=== PATIENT | male | born 1930 | race Caucasian/White ===

== ENCOUNTER 2016-12-13 11:18 | Emergency (ER) | payer MEDICARE, BC, OTHER ==
[2016-12-13 11:59] VITALS: BP 101/66
--- NOTE | 2016-12-13 12:16 | UC ---
HPI Wound/Suture Re-check - HPI Summary HPI Summary: Seen 12/05 after fall and had 7 sutures to R face; denies pain or drainage, here for removal. - History Of Current Complaint Chief Complaint: UCLaceration Stated Complaint: SUTURE REMOVAL Time Seen by Provider: 12/13/16 11:52 Hx Obtained From: Patient Onset/Duration: Sudden Onset Severity: Mild - Allergies/Home Medications Allergies/Adverse Reactions: Allergies Allergy/AdvReac Type Severity Reaction Status Date / Time No Known Allergies Allergy Verified 12/13/16 11:59 PMH/Surg Hx/FS Hx/Imm Hx Endocrine History Of: Denies: Diabetes, Thyroid Disease, Hyperthyroidism, Hypothyroidism, Dyslipidemia Cardiovascular History Of: Reports: Hypertension - WELL CONTROLLED Denies: Cardiac Disorders, Pacemaker/ICD, Myocardial Infarction, Congestive Heart Failure, Atrial Fibrillation, Deep Vein Thrombosis, Bleeding Disorders Respiratory History Of: Denies: COPD, Asthma, Bronchitis, Pneumonia, Pulmonary Embolism GI/ History Of: Reports: Gastroesophageal Reflux Denies: Ulcer, Gastrointestinal Bleed, Gall Bladder Disease, Kidney Stones, Diverticulitis, Renal Disease, Urosepsis Neurological History Of: Denies: TIA, CVA, Dementia, Seizures, Migraine Psychological History Of: Denies: Anxiety, Depression, Bipolar Disorder, Schizophrenia, Post Traumatic Stress Disorder Cancer History Of: Denies: Lung Cancer, Colorectal Cancer, Breast Cancer, Prostate Cancer, Cervical Cancer Other History Of: Negative For: HIV, Hepatitis B, Hepatitis C, Anticoagulant Therapy - Surgical History Surgical History: Yes Surgery Procedure, Year, and Place: CHOLECYSTECTOMY [facility]. REPAIR RUPTURED MECKEL 'S DIVERTICULUM. 2 LAPAROTOMIES FOR ABSCESSES. APPENDECTOMY. RIGHT SHOULDER [facility]. Bilateral Total Knee Replacement. L INGUINAL HERNIA [facility]. BILAT TKR 2000, 2001 [facility]. LEFT CATARACT EXTRACTION [facility] - Family History Known Family History: Negative: Cardiac Disease, Hypertension - Social History Occupation: Retired Lives: Alone Alcohol Use: Daily Substance Use Type: None Smoking Status (MU): Never Smoked Tobacco Have You Smoked in the Last Year: No Household Exposure Type: Pipe - Immunization History Most Recent Influenza Vaccination: 2011 Most Recent Tetanus Shot: 3 years ago Most Recent Pneumonia Vaccination: unsure Review of Systems Constitutional: Negative Skin: Other - suture removal R face Eyes: Negative ENT: Negative Respiratory: Negative Cardiovascular: Negative Gastrointestinal: Negative Genitourinary: Negative Motor: Negative Neurovascular: Negative Musculoskeletal: Negative Neurological: Negative Psychological: Negative All Other Systems Reviewed And Are Negative: Yes Physical Exam Triage Information Reviewed: Yes Appearance: Well-Appearing, No Pain Distress, Well-Nourished Vital Signs: Initial Vital Signs Temp 97.6 F 12/13/16 11:54 Pulse 65 12/13/16 11:54 Resp 16 12/13/16 11:54 BP 101/66 12/13/16 11:54 Pulse Ox 95 12/13/16 11:54 Vital Signs Reviewed: Yes Eye Exam: Normal Eyes: Positive: Conjunctiva Clear ENT Exam: Normal ENT: Positive: Normal ENT inspection, Hearing grossly normal, Pharynx normal, TMs normal. Negative: Tonsillar swelling, Tonsillar exudate Dental Exam: Normal Neck exam: Normal Neck: Positive: Supple, Nontender, No Lymphadenopathy Respiratory Exam: Normal Respiratory: Positive: Chest non-tender, Lungs clear, Normal breath sounds, No respiratory distress, No accessory muscle use Cardiovascular Exam: Normal Cardiovascular: Positive: RRR, No Murmur Musculoskeletal Exam: Normal Neurological Exam: Normal Neurological: Positive: Alert Psychological Exam: Normal Skin Exam: Other - #7 sutures removed from R sikhism, by R eyebrow. Wound healed , no erythema or drainage. Course/Dx - Differential Dx - Laceration/Wound Provider Diagnoses: suture removal R face Discharge - Discharge Plan Condition: Stable Disposition: HOME Patient Education Materials: Stitches Removal (ED) Referrals: Ben Christie MD [Primary Care Provider] - Additional Instructions: Your cut has healed very well. I do not anticipate you will have any other problems with. Try to use sunscreen and/or a hat all summer, as scars are quite prone to sunburn.
== END 2016-12-13 12:25 | disposition home or self-care (01) ==
LOC: UCEAST 11:18
DX: Z48.02 Encounter for removal of sutures (principal); I10 Essential (primary) hypertension; K21.9 Gastro-esophageal reflux disease without esophagitis

== ENCOUNTER 2017-06-27 17:37 | Emergency (ER) | payer MEDICARE, BC, OTHER ==
[2017-06-27 17:47] VITALS: BP 172/90
[2017-06-27] MEDS ORDERED: Benzoin COMPOUND swab* 1 applicator pak TOPICAL ONE (18:14)
[2017-06-27] MEDS ORDERED: Benzoin Compound STICK ONE (18:17)
--- NOTE | 2017-06-27 18:34 | UC ---
Laceration HPI - HPI Summary HPI Summary: 86 yo male stumbled at [facility] and sustained a lac to right eye brow has had 2 prior lacs in that same region no LOC no neck pain denies pain - History Of Current Complaint Chief Complaint: UCLaceration Stated Complaint: EYEBROW LACERATION Time Seen by Provider: 06/27/17 17:50 Hx Obtained From: Patient Laceration Location: Eye - right upper brow Onset/Duration: Sudden Onset, Lasting Hours Severity: Mild Pain Intensity: 1 Pain Scale Used: 0-10 Numeric Aggravating Factors: Other: - touch - Allergies/Home Medications Allergies/Adverse Reactions: Allergies Allergy/AdvReac Type Severity Reaction Status Date / Time No Known Allergies Allergy Verified 06/27/17 17:48 PMH/Surg Hx/FS Hx/Imm Hx Previously Healthy: Yes Cardiovascular History: Hypertension Other History Of: Negative For: HIV, Hepatitis B, Hepatitis C, Anticoagulant Therapy - Surgical History Surgical History: Yes Surgery Procedure, Year, and Place: CHOLECYSTECTOMY [facility]. REPAIR RUPTURED MECKEL 'S DIVERTICULUM. 2 LAPAROTOMIES FOR ABSCESSES. APPENDECTOMY. RIGHT SHOULDER [facility]. Bilateral Total Knee Replacement. L INGUINAL HERNIA [facility]. BILAT TKR 2000, 2001 [facility]. LEFT CATARACT EXTRACTION [facility] - Family History Known Family History: Negative: Cardiac Disease, Hypertension - Social History Alcohol Use: Occasionally Substance Use Type: None Smoking Status (MU): Never Smoked Tobacco Have You Smoked in the Last Year: No Household Exposure Type: Pipe - Immunization History Most Recent Influenza Vaccination: 2011 Most Recent Tetanus Shot: Most Recent Pneumonia Vaccination: unsure Review of Systems Constitutional: Negative Skin: Negative Eyes: Negative ENT: Negative Respiratory: Negative Cardiovascular: Negative Gastrointestinal: Negative Genitourinary: Negative Motor: Negative Neurovascular: Negative Musculoskeletal: Negative Neurological: Negative Psychological: Negative Is Patient Immunocompromised?: No All Other Systems Reviewed And Are Negative: Yes Physical Exam Triage Information Reviewed: Yes Appearance: Well-Appearing, No Pain Distress, Well-Nourished Vital Signs: Initial Vital Signs Temp 98.1 F 06/27/17 17:44 Pulse 83 06/27/17 17:44 Resp 18 06/27/17 17:44 BP 172/90 06/27/17 17:44 Pulse Ox 98 06/27/17 17:44 Eyes: Positive: Conjunctiva Clear ENT: Positive: Uvula midline. Negative: Hearing grossly normal, Nasal congestion, Nasal drainage, Trismus, Muffled voice, Hoarse voice Neck: Positive: Supple, Nontender Respiratory: Positive: Lungs clear, Normal breath sounds, No respiratory distress Cardiovascular: Positive: RRR, No Murmur Neurological: Positive: Alert Psychological Exam: Normal Skin Exam: Other - see image Laceration Repair - Laceration Repair 1 Description: Linear Laceration Size After Repair: Length (cm) - 1.9cm, Width (mm) - 4, Depth (mm) - 1 Modified For Repair: No Cleansing Completed Via Routine Prep: Yes Irrigation With Pressure Irrigation Device: Yes Closure Material: Skin Adhesive, SteriStrips Laceration Course/Dx - Differential Dx - Laceration/Wound Provider Diagnoses: right eyebrow laceration. skin adhesive and steri strip repair Discharge - Discharge Plan Condition: Stable Disposition: HOME Patient Education Materials: Skin Adhesive Care (ED), Steristrips (ED) Referrals: Ben Christie MD [Primary Care Provider] - Additional Instructions: call for any questions return for any problems if steristrips are still on after 7 days gently remove them Images Head: 1 - lac
== END 2017-06-27 18:45 | disposition home or self-care (01) ==
LOC: UCEAST 17:37
DX: S01.111A Laceration without foreign body of right eyelid and periocular area, initial encounter (principal); W01.0XXA Fall on same level from slipping, tripping and stumbling without subsequent striking against object, initial encounter; Y93.9 Activity, unspecified; Y92.89 Other specified places as the place of occurrence of the external cause; Y99.9 Unspecified external cause status
CPT/HCPCS: 12011; 99211; G0463

== ENCOUNTER 2018-09-25 16:59 | Emergency (ER) | payer MEDICARE, BC, OTHER ==
--- NOTE | 2018-09-25 17:41 | UC ---
Head Injury HPI - HPI Summary HPI Summary: 87-year-old male comes in with a chief complaint of head injury. Patient reports he tripped and fell just prior to arrival. He landed and struck his face. His laceration on his nose on his lower lip. Denies any loss of consciousness. Did feel slightly lightheaded after the fall. Is not on any blood thinners. He does have some abrasions on his hands. Denies any other injuries. denies any change in vision or speech or weakness or numbness. - History Of Current Complaint Chief Complaint: UCHeadInjury Stated Complaint: FACIAL INJURY Time Seen by Provider: 09/25/18 17:35 Pain Intensity: 0 - Allergies/Home Medications Allergies/Adverse Reactions: Allergies Allergy/AdvReac Type Severity Reaction Status Date / Time No Known Allergies Allergy Verified 01/02/18 12:48 Home Medications: Home Medications Amoxicillin PO (*) [Amoxicillin 875 MG (*)] 875 mg PO BID 09/25/18 [History Confirmed 09/25/18] Finasteride TAB* [Proscar TAB*] 5 mg PO DAILY 09/25/18 [History Confirmed ] PMH/Surg Hx/FS Hx/Imm Hx Previously Healthy: Yes - BPH Cardiovascular History: Hypertension GI/ History: Gastroesophageal Reflux Other History Of: Negative For: HIV, Hepatitis B, Hepatitis C, Anticoagulant Therapy - Surgical History Surgical History: Yes Surgery Procedure, Year, and Place: [facility]LECYSTECTOMY [facility]. REPAIR RUPTURED MECKEL 'S DIVERTICULUM. 2 LAPAROTOMIES FOR ABSCESSES. APPENDECTOMY. RIGHT SHOULDER [facility]. Bilateral Total Knee Replacement. L INGUINAL HERNIA [facility]. BILAT TKR 2000, 2001 [facility]. LEFT CATARACT EXTRACTION [facility] - Family History Known Family History: Negative: Cardiac Disease, Hypertension - Social History Alcohol Use: Occasionally Substance Use Type: None Smoking Status (MU): Never Smoked Tobacco Have You Smoked in the Last Year: No Household Exposure Type: Pipe - Immunization History Most Recent Influenza Vaccination: 2011 Most Recent Tetanus Shot: Most Recent Pneumonia Vaccination: unsure Review of Systems All Other Systems Reviewed And Are Negative: Yes Constitutional: Positive: Negative Skin: Positive: Other - SEE HPI Eyes: Positive: Negative ENT: Positive: Other - SEE HPI Respiratory: Positive: Negative Cardiovascular: Positive: Negative Gastrointestinal: Positive: Negative Motor: Positive: Negative Neurovascular: Positive: Negative Musculoskeletal: Positive: Negative Neurological: Positive: Negative Psychological: Positive: Negative Is Patient Immunocompromised?: No Physical Exam Triage Information Reviewed: Yes Appearance: Well-Appearing, No Pain Distress, Well-Nourished Vital Signs: Initial Vital Signs Temp 98.3 F 09/25/18 17:12 Pulse 68 09/25/18 17:12 Resp 18 09/25/18 17:12 BP 188/94 09/25/18 17:12 Pulse Ox 96 09/25/18 17:12 Vital Signs Reviewed: Yes Eye Exam: Normal Eyes: Positive: Conjunctiva Clear, Other: - PERRLA/EOMI ENT: Positive: Pharynx normal, TMs normal - NO HEMOTYMPANUM Neck exam: Normal Neck: Positive: Supple, Nontender Respiratory: Positive: Lungs clear, Normal breath sounds, No respiratory distress Cardiovascular: Positive: RRR Musculoskeletal Exam: Normal Musculoskeletal: Positive: Strength Intact, ROM Intact Neurological Exam: Normal Neurological: Positive: Alert, Muscle Tone Normal Psychological Exam: Normal Psychological: Positive: Age Appropriate Behavior Skin: Positive: Other - 2cm well approximated sc laceration on bridge of nose. No suture repair. 1cm flap laceration of lower lip, repaired by the PA; see PA progress note. Head Injury Course/Dx - Course Course Of Treatment: Patient Name: CASEY GARCIA Medical Record#: [id number]. Ordering Physician: Ab Lovell MD Acct.#: [id number]. : 1930 Age: 87 Sex: M Location: [facility]. Exam Date: 09/25/18 ADM Status: REG ER. Order Information: CT BRAIN WO. Accession Number: [id number]. CPT: 88752. EXAM: CT Head Without Contrast. EXAM DATE/TIME: 6:12 PM. CLINICAL HISTORY: 87 years old, male; Pain; Other: Bruising right eye no head pain just light. headed; Patient HX: Patient is light headed after fall today no other pain. Bruising right eye. TECHNIQUE: Axial computed tomography images of the head/brain without contrast. All CT scans at this facility use at least one of these dose optimization. techniques: automated exposure control; mA and/or kV adjustment per patient. size ( includes targeted exams where dose is matched to clinical indication); or. iterative reconstruction. COMPARISON: BRAIN WO CT BRAIN WO 09/25/2018 5:59 PM. FINDINGS: Brain: There is stable age-related diffuse cerebral volume loss and chronic. microvascular ischemic disease. Stable bilateral basal ganglia calcifications. Ventricles: Normal. No ventriculomegaly. Bones/joints: Unremarkable. No acute fracture. Sinuses: Stable mucosal thickening in the paranasal sinuses. Mastoid air cells: Visualized mastoid air cells are unremarkable. No mastoid. effusion. Soft tissues: Stable mild right periorbital, right facial and right frontal. scalp contusion. IMPRESSION: 1. There is stable age-related diffuse cerebral volume loss and chronic. microvascular ischemic disease. 2. Stable mild right periorbital, right facial and right frontal scalp. contusion. 3. No acute intracranial pathology. To contact [facility] with a general question: Operations Center - [phone]. For direct physician to physician contact: Physician Hotline - [phone]. [facility] ([facility] Facility ID #[id number]). . <Electronically signed by Seth Croft MD in OV> 09/25/18 1900. EXAM: CT Cervical Spine Without Contrast. EXAM DATE/ TIME: 09/25/2018 6:19 PM. CLINICAL HISTORY: 87 years old, male; Pain; Other: PT states no neck pain; Patient HX: Patient. states no neck pain; Additional info: Fal lpatient is light headed after fall. today no other pain. Bruising right eye. And right lip laceration. TECHNIQUE: Axial computed tomography images of the cervical spine without intravenous. contrast. All CT scans at this facility use at least one of these dose optimization. techniques: automated exposure control; mA and/or kV adjustment per patient. size ( includes targeted exams where dose is matched to clinical indication); or. iterative reconstruction. Coronal and sagittal reformatted images were created and reviewed. COMPARISON: No relevant prior studies available. FINDINGS: Vertebrae: See Discs/spinal Canal/neural Foramina Finding. Discs/Spinal canal/ Neural foramina: There is multilevel disc height loss,. endplate degenerative spurring and uncinate process and facet hypertrophy. There is diffuse osteopenia. There is grade 1 retrolisthesis at C4-5 and C5-6,. likely degenerative. There is multilevel neural foraminal stenosis. Soft tissues: Unremarkable. Lungs: Lung apices are normal. IMPRESSION: No cervical spine fracture or other acute traumatic CT pathology. To contact [facility] with a general question: Operations Center - [phone]. For direct physician to physician contact: Physician Hotline - [phone]. [facility] ( [facility] Facility ID #[id number]). End of Report Content ======== . . Attending Doctor: Ab Lovell ([id number]). Prawn Trawler Hand: Seth Croft ([id number]). Heel Blacker: Lia FAROOQ ([facility]). Report Date: 09/25/2018 17:39:00. Report Status: Final. = Begin of Report Content . Patient Name: CASEY GARCIA Medical Record#: [id number]. Ordering Physician: Ab Lovell MD Acct.#: [id number]. : 1930 Age: 87 Sex: M Location: [facility]. Exam Date: 09/25/181738 ADM Status: REG ER. Order Information: CT SPINE CERVICAL W/O. Accession Number: [id number]. CPT: 61747. EXAM: CT Cervical Spine Without Contrast. EXAM DATE/TIME: 09/25/2018 6:19 PM. CLINICAL HISTORY: 87 years old, male; Pain; Other: PT states no neck pain; Patient HX: Patient. states no neck pain; Additional info: Fal lpatient is light headed after fall. today no other pain. Bruising right eye. And right lip laceration. TECHNIQUE: Axial computed tomography images of the cervical spine without intravenous. contrast. All CT scans at this facility use at least one of these dose optimization. techniques: automated exposure control; mA and/or kV adjustment per patient. size (includes targeted exams where dose is matched to clinical indication); or. iterative reconstruction. Coronal and sagittal reformatted images were created and reviewed. COMPARISON: No relevant prior studies available. FINDINGS: Vertebrae: See Discs/spinal Canal/neural Foramina Finding. Discs/Spinal canal/Neural foramina: There is multilevel disc height loss,. endplate degenerative spurring and uncinate process and facet hypertrophy. There is diffuse osteopenia. There is grade 1 retrolisthesis at C4 -5 and C5-6,. likely degenerative. There is multilevel neural foraminal stenosis. Soft tissues: Unremarkable. Lungs: Lung apices are normal. IMPRESSION: No cervical spine fracture or other acute traumatic CT pathology. To contact [facility] with a general question: Operations Center - [phone]. For direct physician to physician contact: Physician Hotline - [phone]. [facility] ([facility] Facility ID #[id number]). . <Electronically signed by Seth Croft MD in OV> 09/25/18 1903. EXAM: CT Maxillofacial Without Contrast. EXAM DATE/ TIME: 09/25/2018 6:16 PM. CLINICAL HISTORY: 87 years old, male; Pain; Eye pain and maxilla pain; Right; Patient HX: Patient is light headed after fall today no other pain. Bruising right eye. And. right lip laceration. TECHNIQUE : Axial computed tomography images of the face without intravenous contrast. All CT scans at this facility use at least one of these dose optimization. techniques: automated exposure control; mA and/or kV adjustment per patient. size (includes targeted exams where dose is matched to clinical indication); or. iterative reconstruction. Coronal and sagittal reformatted images were created and reviewed. COMPARISON: No relevant prior studies available. FINDINGS: Orbits: No acute intraorbital abnormality. Globes are unremarkable. Sinuses: There is significant mucosal thickening in the paranasal sinuses. with possible fluid levels in the frontal and maxillary sinuses, cannot exclude. acute on chronic sinusitis. Bones/joints: No acute maxillofacial fracture. Dental: There is poor dentition with multifocal periodontal disease. Soft tissues: There is right frontal scalp, right periorbital and right. facial contusion. IMPRESSION: 1. There is significant mucosal thickening in the paranasal sinuses with. possible fluid levels in the frontal and maxillary sinuses, cannot exclude. acute on chronic sinusitis. 2. There is right frontal scalp, right periorbital and right facial contusion. 3. No acute maxillofacial fracture. To contact [facility] with a general question: Operations Center - [phone]. For direct physician to physician contact: Physician Hotline - [phone]. [facility] ([facility] Facility ID #[id number]) . End of Report Content . . Attending Doctor: Ab Lovell ([id number]). Prawn Trawler Hand: Seth Croft ([id number]). Heel Blacker: Lia FAROOQ ([facility]). Report Date: 09/25/2018 17: 39:00. Report Status: Final. Begin of Report Content . Patient Name: CASEY GARCIA Medical Record#: [id number]. Ordering Physician: Ab Lovell MD Acct.#: [id number]. : 1930 Age: 87 Sex: M Location: [facility]. Exam Date: 1738 ADM Status: REG ER. Order Information: CT MAXILLOFACIAL W/O. Accession Number: [id number]. CPT: 39502. EXAM: CT Maxillofacial Without Contrast. EXAM DATE/TIME: 09/25/2018 6:16 PM. CLINICAL HISTORY: 87 years old , male; Pain; Eye pain and maxilla pain; Right; Patient HX: Patient is light headed after fall today no other pain. Bruising right eye. And. right lip laceration. TECHNIQUE: Axial computed tomography images of the face without intravenous contrast. All CT scans at this facility use at least one of these dose optimization. techniques: automated exposure control; mA and/or kV adjustment per patient. size (includes targeted exams where dose is matched to clinical indication); or. iterative reconstruction. Coronal and sagittal reformatted images were created and reviewed. COMPARISON: No relevant prior studies available. FINDINGS: Orbits: No acute intraorbital abnormality. Globes are unremarkable. Sinuses: There is significant mucosal thickening in the paranasal sinuses. with possible fluid levels in the frontal and maxillary sinuses, cannot exclude. acute on chronic sinusitis. Bones/joints: No acute maxillofacial fracture. Dental: There is poor dentition with multifocal periodontal disease. Soft tissues: There is right frontal scalp, right periorbital and right. facial contusion. IMPRESSION: 1. There is significant mucosal thickening in the paranasal sinuses with. possible fluid levels in the frontal and maxillary sinuses, cannot exclude. acute on chronic sinusitis. 2. There is right frontal scalp, right periorbital and right facial contusion. 3. No acute maxillofacial fracture. To contact [facility] with a general question: Operations Center - [phone]. For direct physician to physician contact: Physician Hotline - [phone]. [facility] ([facility] Facility ID #[id number]). . <Electronically signed by Seth Croft MD in OV> 09/25/18 0911. I discussed the CT reports with the patient. Patient's lacerations were cleaned by nursing and repaired by the physician assistant golf course superintendent. Please see the physician assistant golf course superintendent progress note for care of the lacerations. Patient is to get reevaluated if he worsens or has any questions or concerns. - Differential Dx/Diagnosis Provider Diagnosis: Facial laceration, Facial contusion, Head injury Discharge - Sign-Out/Discharge Documenting (check all that apply): Patient Departure All imaging exams completed and their final reports reviewed: Yes - Discharge Plan Condition: Good Disposition: HOME Patient Education Materials: Laceration (ED), Head Injury (ED), Facial Contusion (ED) Referrals: Ben Christie MD [Primary Care Provider] - Additional Instructions: Please return to the urgent care for suture removal in 3-4 days. We discussed the chances of infection and the point of suturing today was to preserve the lip tissue. FOLLOW UP WITH YOUR DOCTOR. GET RECHECKED FOR ANY WORSENING OF YOUR CONDITION; WEAKNESS, NUMBNESS, CHANGE IN SPEECH OR VISION, UNEXPLAINED VOMITING, YOU FEEL ILL OR QUESTIONS OR CONCERNS. - Billing Disposition and Condition Condition: GOOD Disposition: Home
[2018-09-25] MEDS ORDERED: Lidocaine 1%* 5 ML VIAL INJ ONE (18:34)
[2018-09-25] MEDS ORDERED: Lidocaine 1%* 5 ML VIAL ONE (18:36)
--- NOTE | 2018-09-25 19:46 | UC ---
- Progress Note Progress Note: site: lower lip, mild bleeding tolerated well. approx 1 cm 1% lidocaine used to anesthetize area after it was irrigated. Cleaned area. 6- 0 sutures used to tac down lower lip tissue/flap. 4 sutures were used and area had good blood supply. Course/Dx - Diagnoses Provider Diagnoses: Facial laceration, Facial contusion, Head injury Discharge - Sign-Out/Discharge Documenting (check all that apply): Patient Departure All imaging exams completed and their final reports reviewed: No Studies - Discharge Plan Condition: Good Disposition: HOME Patient Education Materials: Laceration (ED), Head Injury (ED), Facial Contusion (ED) Referrals: Ben Christie MD [Primary Care Provider] - Additional Instructions: Please return to the urgent care for suture removal in 3-4 days. We discussed the chances of infection and the point of suturing today was to preserve the lip tissue. FOLLOW UP WITH YOUR DOCTOR. GET RECHECKED FOR ANY WORSENING OF YOUR CONDITION; WEAKNESS, NUMBNESS, CHANGE IN SPEECH OR VISION, UNEXPLAINED VOMITING, YOU FEEL ILL OR QUESTIONS OR CONCERNS. - Billing Disposition and Condition Condition: GOOD Disposition: Home
[2018-09-25 20:13] VITALS: BP 164/84
== END 2018-09-25 20:25 | disposition home or self-care (01) ==
LOC: UCEAST 16:59
DX: S01.21XA Laceration without foreign body of nose, initial encounter (principal); S01.511A Laceration without foreign body of lip, initial encounter; S09.90XA Unspecified injury of head, initial encounter; I10 Essential (primary) hypertension; W01.198A Fall on same level from slipping, tripping and stumbling with subsequent striking against other object, initial encounter; Y92.9 Unspecified place or not applicable
CPT/HCPCS: 12011; 70450; 70486; 72125; 99211; G0463

== ENCOUNTER 2019-01-12 16:33 | Observation (INO) | payer MEDICARE, BC, OTHER ==
--- NOTE | 2019-01-12 16:53 | ED ---
Neurological HPI - HPI Summary HPI Summary: An 88 y/o F brought in by ambulance presents to ED s/p syncopal episode onset [employer] approx [id number]. Patient has small lacs to his face and dried blood on his face. Patient had been doing yard work and came to on the driveway. He denies CARMONA. Per daughter: Patient was not at baseline last night--he seemed confused and easily aggravated. Similarly, at lunch he told her he was not feeling well and was going to take a nap. Patient is not on a blood thinner. - History of Current Complaint Stated Complaint: SYNCOPE PER EMS Time Seen by Provider: 01/12/19 16:44 Hx Obtained From: Patient, Family/Geodetic Advisor Onset/Duration: Sudden Onset, Started hours ago - approx [id number], Resolved - syncope Current Severity: Mild Number of Seizures: 0 Syncope Context: Unwitnessed, Unknown Associated Signs and Symptoms: Positive: Confusion, Agitation. Negative: Headache - Allergy/Home Medications Allergies/Adverse Reactions: Allergies Allergy/AdvReac Type Severity Reaction Status Date / Time No Known Allergies Allergy Verified 09/29/18 12:45 Home Medications: Home Medications Ciclopirox [Penlac Nail Lacquer] 8 % TOPICAL DAILY 01/12/19 [History Confirmed 01/12/19] Glucosam/Chond/Collagen/Hyalur [Glucosamine Chondroitin/C] 1 cap PO DAILY [History Confirmed 01/12/19] PMH/Surg Hx/FS Hx/Imm Hx Previously Healthy: No Endocrine/Hematology History: Denies: Hx Anticoagulant Therapy, Hx Diabetes, Hx Thyroid Disease Cardiovascular History: Reports: Other Cardiovascular Problems/Disorders - HTN Denies: Hx Congestive Heart Failure, Hx Deep Vein Thrombosis, Hx Myocardial Infarction, Hx Pacemaker/ICD Comment Only: Hx Hypertension - WELL CONTROLLED Respiratory History: Denies: Hx Asthma, Hx Chronic Obstructive Pulmonary Disease (COPD), Hx Lung Cancer, Hx Pneumonia, Hx Pulmonary Embolism GI History: Reports: Hx Diverticulosis, Hx Gastroesophageal Reflux Disease, Hx Obstructive Bowel Denies: Hx Gall Bladder Disease, Hx Gastrointestinal Bleed, Hx Ulcer, Hx Urosepsis Comment Only: Other GI Disorders - PAIN, History: Reports: Hx Benign Prostatic Hyperplasia, Other Problems/ Disorders - BPH Denies: Hx Kidney Stones, Hx Renal Disease Musculoskeletal History: Reports: Hx Arthritis - ALL OVER, Other Musculoskeletal History - bilateral knee replacements Sensory History: Reports: Hx Contacts or Glasses - GLASSES, Hx Glaucoma, Hx Hearing Aid Denies: Hx Hearing Problem Opthamlomology History: Reports: Hx Contacts or Glasses - GLASSES, Hx Glaucoma Neurological History: Denies: Hx Dementia, Hx Migraine, Hx Seizures, Hx Transient Ischemic Attacks (TIA) Psychiatric History: Denies: Hx Anxiety, Hx Depression, Hx Panic Disorder, Hx Schizophrenia, Hx Bipolar Disorder, Hx Substance Abuse - Surgical History Surgery Procedure, Year, and Place: CHOLECYSTECTOMY [facility]. REPAIR RUPTURED MECKEL 'S DIVERTICULUM. 2 LAPAROTOMIES FOR ABSCESSES. APPENDECTOMY. RIGHT SHOULDER [facility]. Bilateral Total Knee Replacement. L INGUINAL HERNIA [facility]. BILAT TKR 2000, 2001 [facility]. LEFT CATARACT EXTRACTION [facility] Hx Anesthesia Reactions: No Infectious Disease History: Denies: Hx Clostridium Difficile, Hx Hepatitis, Hx Human Immunodeficiency Virus (HIV), Hx of Known/Suspected MRSA, Hx Shingles, Hx Tuberculosis, Traveled Outside the in Last 30 Days - Family History Known Family History: Negative: Cardiac Disease, Hypertension - Social History Occupation: Retired Lives: With Family Alcohol Use: Occasionally Hx Substance Use: No Substance Use Type: Reports: None Hx Tobacco Use: No Smoking Status (MU): Never Smoked Tobacco Have You Smoked in the Last Year: No Review of Systems Skin: Other - pos: facial lacs Neurological: Other - pos: confusion, easily aggravated Positive: Syncope. Negative: Headache All Other Systems Reviewed And Are Negative: Yes Physical Exam - Summary Physical Exam Summary: Appearance: The patient is well-nourished in no acute distress and in no acute pain. Skin: The skin is warm and dry and skin color reflects adequate perfusion. Lacerations above R eyebrow and to tip of nose. HEENT: The head is normocephalic. The pupils are equal and reactive. The conjunctivae are clear and without drainage. Nares are patent and without drainage. Mouth reveals moist mucous membranes and the throat is without erythema and exudate. The external ears are intact. The ear canals are patent and without drainage. The tympanic membranes are intact. Neck: the neck is supple with full range of motion and non-tender. There are no carotid bruits. There is no neck vein distension. Respiratory: Chest is non-tender. Lungs are clear to auscultation and breath sounds are symmetrical and equal. Cardiovascular: Heart is regular rate and rhythm. There is no murmur or rub auscultated. There is no peripheral edema and pulses are symmetrical and equal. Abdomen: The abdomen is soft and non-tender. There are normal bowel sounds heard in all four quadrants and there is no organomegaly palpated. Musculoskeletal: There is no back tenderness noted. Extremities are non-tender with full range of motion. There is good capillary refill. There is no peripheral edema or calf tenderness elicited. Neurological: Patient is alert and oriented to person, place and time. The patient has symmetrical motor strength in all four extremities. Cranial nerves are grossly intact. Deep tendon reflexes are symmetrical and equal in all four extremities. Psychiatric: The patient has an appropriate affect and does not exhibit any anxiety or depression. Triage Information Reviewed: Yes Vital Signs Reviewed: Yes - Anders Coma Scale Best Eye Response: 4 - Spontaneous Best Motor Response: 6 - Obeys Commands Best Verbal Response: 5 - Oriented Coma Scale Total: 15 Diagnostics - Laboratory Result Diagrams: 01/12/19 17:15 01/12/19 17:15 Lab Statement: Any lab studies that have been ordered have been reviewed, and results considered in the medical decision making process. - CT Brain CT CT Interpretation Completed By: Radiologist Summary of CT Findings: IMPRESSION: 1. No calvarial fracture or acute intracranial hemorrhage. 2. Minimally displaced left nasal bone fracture. 3. There is infiltration of the subcutaneous tissue overlying the left orbit, nose and mandible. 4. There is multilevel degenerative change of the cervical spine similar in appearance to prior CT imaging without acute fracture or dislocation. 5. There is coarse atherosclerotic calcification of the bilateral carotid bulbs. Further characterization of carotid stenosis can be made with ultrasound of the carotid arteries in this patient that potentially experienced a spontaneous "faint". ED provider has reviewed this report. MAXILLOFACIAL CT CT Interpretation Completed By: Radiologist Summary of CT Findings: IMPRESSION: 1. No calvarial fracture or acute intracranial hemorrhage. 2. Minimally displaced left nasal bone fracture. 3. There is infiltration of the subcutaneous tissue overlying the left orbit, nose and mandible. 4. There is multilevel degenerative change of the cervical spine similar in appearance to prior CT imaging without acute fracture or dislocation. 5. There is coarse atherosclerotic calcification of the bilateral carotid bulbs. Further characterization of carotid stenosis can be made with ultrasound of the carotid arteries in this patient that potentially experienced a spontaneous "faint". ED provider has reviewed this report. C-SPINE CT CT Interpretation Completed By: Radiologist Summary of CT Findings: IMPRESSION: 1. No calvarial fracture or acute intracranial hemorrhage. 2. Minimally displaced left nasal bone fracture. 3. There is infiltration of the subcutaneous tissue overlying the left orbit, nose and mandible. 4. There is multilevel degenerative change of the cervical spine similar in appearance to prior CT imaging without acute fracture or dislocation. 5. There is coarse atherosclerotic calcification of the bilateral carotid bulbs. Further characterization of carotid stenosis can be made with ultrasound of the carotid arteries in this patient that potentially experienced a spontaneous "faint". ED provider has reviewed this report. - Ultrasound No standard instances Ultrasound Interpretation Completed By: Radiologist Summary of Ultrasound Findings: CAROTID BILAT U/S: IMPRESSION: No evidence of hemodynamically significant stenosis. ED provider has reviewed this report. - EKG 1640 Cardiac Rate: NL - 79 bpm EKG Rhythm: Sinus Rhythm ST Segment: Normal Ectopy: None Summary of EKG Findings: No STEMI. Course/Dx - Course Course Of Treatment: Mr. Lee apparently fell in the driveway today. It was unwitnessed and he has no memory of the event. He he cannot tell me how he felt prior to going down or whether it was mechanical. He got a good blow to the head then hit his face pretty hard. On arrival he was noted to have some facial lacerations and swelling. He was awake and alert and oriented at this point. His daughter tells me that he is normally quite oriented, he lives with his and takes care of his activities of daily living. Head CT was obtained and was unremarkable. Maxillofacial CT revealed nasal bone fracture. Cervical CT showed only calcifications in the carotid bulbs. An ultrasound was recommended and obtained. This was negative for any acute pathology such as dissection. I spoke with the hospitalist about admitting him for syncope and observing him. This may just be a concussion. - Diagnoses Provider Diagnoses: Syncope, Nasal fracture, Facial laceration - Physician Notifications Discussed Care Of Patient With: Mansi Zimmerman - hospitalist Time Discussed With Above Provider: 20:00 Instructed by Provider To: Admit As Inpatient Discharge - Sign-Out/Discharge Documenting (check all that apply): Patient Departure - ADMIT Patient Received Moderate/Deep Sedation with Procedure: No - Discharge Plan Condition: Stable Disposition: ADMITTED TO [facility] Referrals: Ben Christie MD [Primary Care Provider] - - Billing Disposition and Condition Condition: STABLE Disposition: Admitted to [facility] - Attestation Statements Document Initiated by Aaliyahiblissette: Yes Documenting Scribe: Dragan Jansen Provider For Whom Jo-Ann is Documenting (Include Credential): Dr. Bruno Monson MD Scribe Attestation: Dragan Gamino, scribed for Dr. Bruno Monson MD on 01/12/19 at 2107. Scribe Documentation Reviewed: Yes Provider Attestation: The documentation as recorded by the jo-ann, Dragan Jansen accurately reflects the service I personally performed and the decisions made by me, Dr. Bruno Monson MD Status of Scribe Document: Viewed
[2019-01-12 17:31] LABS: ABS Lymphocytes 0.8 10^3/ul (1.0-4.8); ABS Monocytes 0.6 10^3/ul (0-0.8); ABS Neutrophils 5.4 10^3/ul (1.5-7.7); Eosinophil % 0.6 %; Hematocrit 42 % (42-52); Hemoglobin 14.2 g/dL (14.0-18.0); Lymphocyte % 12.2 %; Mean Corpuscular HGB Conc 34 g/dL (31-36); Mean Corpuscular Hemoglobin 30 pg (27-31); Mean Corpuscular Volume 89 fL (80-94); Mean Platelet Volume 7.9 fL (7.4-10.4); Platelet Count 240 10^3/uL (150-450); Red Blood Count 4.73 10^6 /uL (4.18-5.48); Red Cell Distribution Width 15 % (10-15); White Blood Count 6.9 10^3/uL (3.5-10.8)
[2019-01-12 17:49] LABS: Albumin 4.1 g/dL (3.2-5.2); Albumin/Globulin Ratio 1.4 (1-3); Calcium 9.3 mg/dL (8.6-10.3); EGFR African American 85.5 (>60); EGFR Non-African American 70.7 (>60); Globulin 2.9 g/dL (2-4); Total Bilirubin 0.4 mg/dL (0.2-1.0)
[2019-01-12 18:02] LABS: TSH (Thyroid Stimulating Horm) 1.48 mcIU/mL (0.34-5.60)
[2019-01-12 18:27] LABS: Potassium 4.5 mmol/L (3.5-5.0)
[2019-01-12] MEDS ORDERED: Piperacillin/Tazobac ADVAN(*) 3.375 GM in NS 0.9% 100 ML* 100 ML IVPB ONE (19:51)
[2019-01-12] MEDS ORDERED: Lidocaine 2% EPI 1:200000 MPF*10-20 ML VIAL INJ ONE (19:57)
--- NOTE | 2019-01-12 20:35 | PN ---
Progress Note - Progress Note Date of Service: 01/12/19 Note: suture placement done by Delfina DAVIDSON 4cm by 1/2cm left eyebrow laceration cleaned with 100 cc saline lidocaine with epi placed 5-0 prolene 4 sutures 2cm by 1/4cm left nasl laceration cleaned with 50 cc saline lidocaine with epi placed 5-0 prolene 2 sutures 4cm by 1cm right nares laceration cleaned with 100 cc saline lidocaine with epi placed 5-0 prolene 5 sutures
[2019-01-12] MEDS ORDERED: Acetaminophen TAB* 325 MG PO PRN (22:16)
[2019-01-12] MEDS ORDERED: Ketorolac INJ* 30 MG/ML 1 ML VIAL IV PRN (22:17)
[2019-01-12] MEDS ORDERED: Latanoprost 0.005%* 2.5 ml BTL BOTH EYES SCH (23:30)
--- NOTE | 2019-01-12 23:54 | HP ---
HISTORY AND PHYSICAL: DATE OF ADMISSION: 01/12/19 PRIMARY CARE PROVIDER: Dr. Christie. NURSE ANESTHESIA PROGRAM DIRECTOR: Ping Lee, patient's daughter. CODE STATUS: Full. SOURCE OF INFORMATION: HPI is obtained from patient who is a good historian. CHIEF COMPLAINT: Fall. HISTORY OF PRESENT ILLNESS: This is an 88-year-old male with past medical history of hypertension, heartburn, BPH, distant history of DVT, provoked, no longer on anticoagulants, who was brought in by ambulance after a fall on his driveway. Per report of the family, the patient actually has poor recollection of the event and 1 day prior to admission family said that he seemed more sleepy and little "off" but with no localizing signs or symptoms. Nonetheless, he was able to do yard work all day, the day of admission, and he thinks that while he was loading something into his wheelbarrow, he tripped on the trim of the grass, although he does not have a clear memory of the event. Nonetheless, he was found down after hitting his head and having loss of consciousness and was brought to the emergency room by the ambulance for further workup. Of note, the patient's baseline functional status is completely independent in IDLs and ADLs, patient is driving, has no known history of dementia and quite functional and exercises daily. EMERGENCY ROOM COURSE: Blood pressure was 180/124 on arrival, temperature 97.8, pulse 81, respiratory rate 18, 94% on room air, GCS of 15 on arrival and the patient had maintained consciousness. No neurologic deficits, but had complete amnesia of the fall. Labs were done, which were wholly normal say for a sodium of 134. Imaging was done that included a head CT, sinus and cervical spine, which showed no acute intracranial hemorrhage or pathology, a displaced left nasal bone fracture, DJD in the cervical spine, but without fracture or dislocation and notable carotid calcification on CT. A carotid ultrasound was subsequently done, which showed no stenosis. An EKG was performed, which showed normal sinus rhythm. The patient received antibiotics in the ED for left nasal bone fracture with open laceration and had laceration repair. The hospitalist team was asked to observe this patient for possible syncopal event and in discussion with the patient and family, they agreed to observation admission. PAST MEDICAL HISTORY: GERD, hypertension, BPH, distant history of provoked DVT , distant history of SBO. PAST SURGICAL HISTORY: Status post ex-lap for ruptured Meckel's, status post cholecystectomy, status post left inguinal hernia repair, history of right shoulder surgery, bilateral knee replacements. MEDICATIONS: 1. Alphagan. 2. Penlac. 3. Travoprost drops in both eyes q.h.s. 4. Glucosamine chondroitin capsule 1 cap p.o. daily. 5. Multivitamin 1 cap p.o. daily. 6. Finasteride 5 mg p.o. daily. 7. Lisinopril 20 mg p.o. daily. 8. Omeprazole 40 mg p.o. daily. 9. Tamsulosin 0.4 mg p.o. daily. ALLERGIES: No known allergies. FAMILY HISTORY: Positive for heart disease in father; mother otherwise healthy. SOCIAL HISTORY: The patient is a retired career army and lives with his . He is a lifetime nontobacco user. He is a social alcohol drinker with 7 drinks per week and no history of illicits. REVIEW OF SYSTEMS: Constitutional: The patient denies fevers, chills, or malaise. HEENT: Positive for mild headache but no vision changes or sore throat. Cardiovascular: Negative for chest pain, palpitations or orthopnea. Respiratory: Negative for shortness of breath, cough, or pleuritic chest pain. GI: Negative for nausea, vomiting, diarrhea, or abdominal pain. : Negative for dysuria or hematuria. Musculoskeletal: Negative for myalgias, arthralgias , although he has chronic osteoarthritis. Skin: Negative for rashes or lesions prior to the event, now positive for bruising diffusely across the face. Neurologic: Negative for focal weakness or numbness. Psychiatric: Negative for depression, anxiety. Endocrine: Negative for polyuria or polydipsia. Heme and Lymph: This is negative for easy bruising, bleeding or lymphadenopathy. PHYSICAL EXAMINATION GENERAL APPEARANCE: This is a very pleasant, younger than stated age appearing man, sitting up in the stretcher, in no acute distress. A and O x4. VITAL SIGNS: At the time of physical exam, blood pressure is 152/108, pulse rate 69 in sinus, temperature is 97.8, respiratory rate is 15, oxygen saturation 97% on room air. HEENT: He has bilateral injected sclerae. The pupils are 3 mm and reactive bilaterally. Extraocular muscles are intact. The patient has laceration repair across bridge of nose and diffuse bruising to bilateral orbits, sub- mandible hematoma, nasal hematoma. Oropharynx shows dry mucous membranes, but without other lesions. Dentition is fair. NECK: Supple with no supraclavicular or cervical lymphadenopathy. RESPIRATORY: Clear to auscultation bilaterally. CARDIAC: Regular rate and rhythm with no murmurs, rubs, or gallops. GI: Belly is soft, nontender, nondistended with normoactive bowel sounds. SKIN: Peripherally has no rashes or lesions, otherwise as described in HEENT exam. MUSCULOSKELETAL: He moves all 4 limbs spontaneously without pain. EXTREMITIES: Bilateral DP pulses 2+, no edema. NEUROLOGIC: His cranial nerves II through XII are intact. He has no focal neurologic deficits with 5/5 strength in bilateral upper extremities and lower extremities. Sensation intact throughout. A and O x4. LABS AND STUDIES: CBC: White blood cell count of 6.9, hemoglobin 14.2, hematocrit 42, platelets 240. Chemistry: Sodium 134, potassium 4.5, chloride 103, carbon dioxide 23, BUN 17, creatinine 1, glucose 112, lactic acid 1.6. AST 28, ALT 19, alk phos 54. Troponin is flat 0 and TSH 1.[address] cervical spine, maxillofacial and brain CT, which is notable for left displaced nasal fracture, but otherwise no acute pathology. Carotid Doppler ultrasound shows no significant stenosis. EKG showed normal sinus rhythm. Imaging and labs reviewed by myself. ASSESSMENT AND PLAN: This is an 88-year-old healthy male, independent in IDLs and ADLs with past medical history of hypertension, gastroesophageal reflux disease, benign prostatic hypertrophy, who was brought in by ambulance after a fall with loss of consciousness and head trauma. The patient had initially no recollection of events and is being admitted for syncope workup. Differential for this seems like possible mechanical fall, possible vasovagal event less likely CVA or TIA and his acute amnesia is most likely secondary to postconcussive syndrome. He will be admitted for observation and treatment as followin. Status post mechanical fall with left nasal fracture. Again, possible differential for this is syncopal event. We will hydrate overnight and repeat orthostatics in the morning. PT is consulted for nasal fracture per emergency room. Because of open laceration, prophylactic antibiotics were recommended. The patient will be placed on Augmentin for a total of 6 doses. 2. Amnesia. The patient has acute amnesia of events of his fall. His CT head does not show intracranial pathology. This is most likely postconcussive. His memory is in fact improved on my exam and we will continue to monitor. No need for neuro consult at this time. 3. Gastroesophageal reflux disease. We will continue home PPI. 4. Benign prostatic hypertrophy. We will continue home meds. 5. DVT prophylaxis. Place the patient on subcu heparin for moderate risk. 6. FEN. Heart-healthy diet, caffeine okay. 7. Disposition. The patient is stable for observation on telemetry given syncope, anticipate hopeful discharge within 24 hours 8. Code status is full. TIME SPENT: Thirty five minutes was spent in the planning of this admission with over half of that spent directly at the bedside with the patient providing direct patient care. Plan of care was discussed with patient. He and family feel most comfortable with observation and admission, we discuss hopeful observation status and discharge to home within 24 hours [id number]/TERRA #: [id number] DEJAN
[2019-01-13] MEDS: NS 0.9% 1000 ML** 1,000 ML IV SCH ×2 (00:22→05:42)
[2019-01-13] MEDS: Brimonidine P 0.1%(NF) 1 DROP BTL BOTH EYES SCH ×2 (00:33→08:46)
[2019-01-13 00:48] LABS: Urine Appearance Clear; Urine Bilirubin Negative (Negative); Urine Blood Negative (Negative); Urine Color Straw; Urine Glucose Negative (Negative); Urine Ketones Negative (Negative); Urine Nitrite Negative (Negative); Urine Protein Negative (Negative); Urine Specific Gravity 1.009 (1.010-1.030); Urine Urobilinogen Negative (Negative)
[2019-01-13] MEDS ORDERED: Heparin VIAL(*) 5000 UNITS/ML VIAL (FIVE THOUSAND) SUBCUT SCH (06:00)
[2019-01-13 06:44] LABS: BUN/Creatinine Ratio 15.6 (8-20); Calcium 8.7 mg/dL (8.6-10.3); EGFR African American 96.6 (>60); EGFR Non-African American 79.8 (>60); Potassium 3.8 mmol/L (3.5-5.0)
[2019-01-13] MEDS ORDERED: Finasteride TAB* 5 MG PO SCH (09:00)
[2019-01-13] MEDS ORDERED: Amoxicillin/Clavulanate TAB* 875 MG PO SCH (09:00)
[2019-01-13] MEDS ORDERED: Pantoprazole TAB * 40 MG TAB PO SCH (09:00)
[2019-01-13] MEDS ORDERED: Tamsulosin CAP* 0.4 MG PO SCH (12:00)
[2019-01-13] MEDS ORDERED: Lisinopril TAB* 10 MG PO SCH (12:00)
[2019-01-13 14:00] VITALS: BP 143/58
--- NOTE | 2019-01-13 20:55 | DS ---
CC: Dr. Christie* DISCHARGE SUMMARY: DATE OF ADMISSION: 01/12/19 DATE OF ELOPEMENT: 01/13/19 PRIMARY CARE PROVIDER: Dr. Christie. PRINCIPAL DIAGNOSIS: Mechanical fall with resultant left nasal bone fracture and lacerations involving the left eyebrow and nose. SECONDARY DIAGNOSIS: 1. Hypertension. 2. BPH. 3. Gastroesophageal reflux disease. DISCHARGE MEDICATIONS: 1. Augmentin 875 mg p.o. b.i.d. x8 doses. 2. Glucosamine chondroitin 1 cap p.o. daily. 3. Ciclopirox 8% topically daily. 4. Travoprost Z 1 drop to both eyes at bedtime. 5. Omeprazole 40 mg p.o. daily. 6. Flomax 0.4% p.o. daily. 7. Multivitamin 1 tab p.o. daily 8. Lisinopril 20 mg p.o. daily. 9. Finasteride 5 mg p.o. daily. 10. Brimonidine P 1 drop to both eyes b.i.d. HOSPITAL COURSE: Mr. Lee is an 88-year-old male who was out doing yard work when he ultimately fell to the ground hitting his face on his black top driveway. He recalls bleeding from his nose and went into the house, got hold his daughter who called an ambulance. The patient initially did not recall what happened, however, with more time, he now remembers falling after he caught his toes on the lip of the driveway. He unfortunately hit his face on the driveway. He sustained a left nasal bone fracture and laceration to the left eyebrow and nose. There are sutures in the eyebrow and 2 places on the nose. The patient was started on Augmentin as prophylaxis because of the nasal bone fracture and trauma to the face outside. The patient will continue on Augmentin for 8 more days. The patient has been instructed to avoid any contact to his nose over the next 6 weeks. At this point, as he has a minimally displaced fracture, ENT evaluation was not sought. However, if there are concerns, the patient could be referred to ENT by his PCP. I called to make an appointment with his primary care provider for followup; however, they do not have any appointments available at the time I called. They will be contacting him with an appointment date and time for followup and suture and removal. Therefore, it was clear that the patient had a mechanical fall. He did undergo carotid Doppler for concern of possible syncope, no hemodynamically significant stenosis was identified. He also had a CT of the brain, which revealed no calvarial fracture or acute intracranial hemorrhage. There was minimally displaced left nasal bone fracture noted. There was infiltration of the subcutaneous tissue overlying the left orbit, nose and mandible. There is multilevel degenerative change on the cervical spine similar in appearance to prior CT imaging without acute fracture or dislocation. There is also coarse atherosclerotic calcification of the bilateral carotid bulbs. The patient was monitored on telemetry. There were no concerning arrhythmias. At this point, it was felt that the patient is stable for discharge to home. PHYSICAL EXAMINATION: On the day of discharge, the patient was awake, alert and oriented, sitting up in the chair, in no acute distress. Cardiac: Normal S1 and S2, regular rate and rhythm. Lungs are clear to auscultation bilaterally. Abdomen is soft, nontender, and nondistended. Musculoskeletal: The patient moves all 4 extremities symmetrically. Skin: There is significant bruising noted to both sides of the face and the patient's nose. Again, there are lacerations that are currently sutured in the left eyebrow and 2 spots on the nose. FOLLOWUP CONCERNS: The patient is being discharged home today, 01/13/19. Activity level is as tolerated with caution as to protecting his nose. CONDITION ON DISCHARGE: Stable. DIET: Heart healthy. The patient will be contacted with an appointment date and time by Dr. Christie' s office. TIME SPENT: Twenty-five minutes was spent discharging this patient. [id number]/[facility] #: [id number] [facility]
== END 2019-01-13 14:30 | disposition home or self-care (01) ==
LOC: ED 16:33 → MEDTELE 22:03
PROVIDERS: ADMIT Internal Medicine; ATTEND Hospitalist
DX: S02.2XXA Fracture of nasal bones, initial encounter for closed fracture (principal); W19.XXXA Unspecified fall, initial encounter; Y92.9 Unspecified place or not applicable; S01.112A Laceration without foreign body of left eyelid and periocular area, initial encounter; S01.21XA Laceration without foreign body of nose, initial encounter; I10 Essential (primary) hypertension; N40.0 Benign prostatic hyperplasia without lower urinary tract symptoms; K21.9 Gastro-esophageal reflux disease without esophagitis; Z79.899 Other long term (current) drug therapy; R41.0 Disorientation, unspecified; Z86.79 Personal history of other diseases of the circulatory system; Z90.49 Acquired absence of other specified parts of digestive tract
CPT/HCPCS: 36415; 70450; 70486; 72125; 80048; 80053; 81003; 83605; 83735; 84443; 84484; 85025; 93005; 93880; 96361; 96365; 96372; 96375; 99285; A9270-GY; G0378; G8978-GP-CH; G8979-GP-CH; G8980-GP-CH; J1644; J2543

== ENCOUNTER 2019-04-24 19:34 | Emergency (ER) | payer MEDICARE, BC, OTHER ==
--- OUTSIDE RECORDS SUMMARY | 2019-04-24 19:49 | XMS REPORT | Continuity of Care Document ---
:1930 External Reference #:[id number] Author Name LETY Miller Address [address] [place] [address] Care Team Providers Name Role Phone Jasvir Ramirez MD - Orthopaedic Surgery Care Team Information Life Skills Trainer [phone] Problems Active Problems Provider Date Essential hypertension Ben Christie M.D. Onset: 07/23/2011 Pure hypercholesterolemia Ben Christie M.D. Onset: 07/23/2011 Bronchitis Trevor Lorenzo M.D. Onset: 02/03/2018 Acute sinusitis Trevor Lorenzo M.D. Onset: 02/03/2018 Coordination problem Ben Christie M.D. Onset: 01/04/2017 Benign paroxysmal positional vertigo Ben Christie M.D. Onset: 2016 Adult health examination Ben Christie M.D. Onset: 01/06/2016 Rupture of tendon of biceps, long head Ben Christie M.D. Onset: 2012 Intestinal obstruction Ben Christie M.D. Onset: 08/25/2012 Left lower quadrant pain Ben Christie M.D. Onset: 12/12/2011 Social History Type Date Description Comments Sex Unknown Tobacco Use Start: Unknown Nonsmoker Smoking Status Reviewed: 03/24/19 Nonsmoker Tobacco Use Start: Unknown nonsmoker Allergies, Adverse Reactions, Alerts Active Allergies Reaction Severity Comments Date Ahist Antihistamine urination/sleep issues 01/23/2017 Inactive Allergies NKDA 06/01/2011 Medications Active Medications SIG Qnty Indications Ordering Provider Date Omeprazole take 1 capsule 90units Ben Delgado 07/20/2009 20mg once daily Karuna Christie CPDR Glucosamine And as dir [facility] 11/18/2000 [facility] Multivitamin 1 qd 0units [facility] 11/18/2000 [facility] Alphagan P 1 gtt bid each eye Unknown 0.1% Solution Travatan Z 1 gtt ou at hs Unknown 0.004% Solution Flomax 1 po qd Unknown 0.4mg Capsules Viagra 1/2 tab prn 30-60 6tabs Unknown 100mg min before Tablets intercourse Finasteride 1 by mouth every Unknown 5mg day Tablets Immunizations CPT Code Status Date Vaccine Lot # [id number] Given 05/07/2018 High-Dose, Influenza Virus Vacccine-fluzone 65 and [id number] older 32590 Given 04/26/2017 High-Dose, Influenza Virus Vacccine-fluzone 65 and [id number] older 97636 Given 04/26/2016 High-Dose, Influenza Virus Vacccine-fluzone 65 and [id number] older 52604 Given 04/18/2015 High-Dose, Influenza Virus Vacccine-fluzone 65 and older 22763 Given 12/06/2014 Pneumococcal Conjugate Vacc-13 [id number] 87203 Given 04/14/2014 High-Dose, Influenza Virus Vacccine-fluzone 65 and older 68490 Given 05/20/2013 High-Dose, Influenza Virus Vacccine-fluzone 65 and older 24312 Given 04/08/2013 Tetanus And Diptheria Adult Preservative Free [id number] >7Yrs 81283 Given 04/24/2012 DO Not Use Split Influenza Virus Vaccine 50455 Given 04/14/2010 DO Not Use Split Influenza Virus Vaccine 99836 Given 04/16/2009 DO Not Use Split Influenza Virus Vaccine [id number] 41454 Given 05/11/2008 DO Not Use Split Influenza Virus Vaccine 94810 Given 05/11/2008 DO Not Use Split Influenza Virus Vaccine 47357 Given 05/11/2008 DO Not Use Split Influenza Virus Vaccine 33592 Given 05/22/2006 Pneumococcal Immunization [id number] 29034 Given 05/09/2006 DO Not Use Split Influenza Virus Vaccine [id number] 68667 Given 06/07/2004 Influenza Virus Vaccine, Live For Intranasla Use 37551 Given 05/07/2002 Whole Influenza Virus Vaccine 18455 Given 05/07/2002 DO Not Use Split Influenza Virus Vaccine 35051 Given 05/28/2000 DO Not Use Split Influenza Virus Vaccine 27388 Given 04/28/1998 Pneumococcal Conjugate Vaccine Under 5Yrs Vital Signs Date Vital Result Comment 03/24/2019 12:54pm BP Systolic 108 mmHg BP Diastolic 54 mmHg BP Systolic Recheck 118 mmHg BP Diastolic Recheck 68 mmHg Heart Rate 68 /min Body Temperature 97.3 F Height 68.25 inches 5'8.25" Weight 158.00 lb BMI (Body Mass Index) 23.8 kg/m2 01/17/2019 8:56am BP Systolic 98 mmHg BP Diastolic 60 mmHg Heart Rate 72 /min Body Temperature 98.1 F Respiratory Rate 16 /min Height 68.25 inches 5'8.25" Weight 157.50 lb BMI (Body Mass Index) 23.8 kg/m2 Results Test Date Facility Test Result H/L Range Note Laboratory test 01/12/2019 [facility] Lactic Acid 1.6 mmol/L Normal 0.5-2.0 1 finding CBC Auto Diff 01/12/2019 [facility] White Blood 6.9 10^3/uL Normal 3.5-10.8 Count Red Blood Count 4.73 10^6/uL Normal 4.18-5.48 Hemoglobin 14.2 g/dL Normal 14.0-18.0 Hematocrit 42 % Normal 42-52 Mean Corpuscular Volume 89 fL Normal 80-94 Mean Corpuscular Hemoglobin 30 pg Normal 27-31 Mean Corpuscular HGB Conc 34 g/dL Normal 31-36 Red Cell Distribution Width 15 % Normal 10-15 Platelet Count 240 10^3/uL Normal 150-450 Mean Platelet Volume 7.9 fL Normal 7.4-10.4 Abs Neutrophils 5.4 10^3/uL Normal 1.5-7.7 Abs Lymphocytes 0.8 10^3/uL Low 1.0-4.8 Abs Monocytes 0.6 10^3/uL Normal 0-0.8 Abs Eosinophils 0.0 10^3/uL Normal 0-0.6 Abs Basophils 0.0 10^3/uL Normal 0-0.2 Abs Nucleated RBC 0.0 10^3/uL Granulocyte % 78.1 % Lymphocyte % 12.2 % Monocyte % 8.8 % Eosinophil % 0.6 % Basophil % 0.3 % Nucleated Red Blood Cells % 0.0 Laboratory test finding 01/12/2019 [facility] Troponin I 0.00 ng/mL <0.04 2 Comp Metabolic Panel 01/12/2019 [facility] Sodium 134 mmol/L Low 135-145 Chloride 103 mmol/L Normal 101-111 Co2 Carbon Dioxide 23 mmol/L Normal 22-32 Glucose 112 mg/dL High 70-100 Blood Urea Nitrogen 17 mg/dL Normal 6-24 Creatinine 1.00 mg/dL Normal 0.67-1.17 BUN/Creatinine Ratio 17.0 Normal 8-20 Calcium 9.3 mg/dL Normal 8.6-10.3 Total Protein 7.0 g/dL Normal 6.4-8.9 Albumin 4.1 g/dL Normal 3.2-5.2 Globulin 2.9 g/dL Normal 2-4 Albumin/Globulin Ratio 1.4 Normal 1-3 Total Bilirubin 0.40 mg/dL Normal 0.2-1.0 Alkaline Phosphatase 54 U/L Normal 34-104 Alt 19 U/L Normal 7-52 Egfr Non- 70.7 >60 Egfr 85.5 >60 3 Potassium 4.5 mmol/L Normal 3.5-5.0 Anion Gap 8 mmol/L Normal 2-11 Ast 28 U/L Normal 13-39 Laboratory test finding 01/12/2019 [facility] Magnesium 2.0 mg/dL Normal 1.9- 2.7 TSH (Thyroid Stim Horm) 1.48 mcIU/mL Normal 0.34-5.60 Urinalysis Profile 01/12/2019 [facility] Urine Color Straw Urine Appearance Clear Urine Specific [place] 1.009 Low 1.010-1.030 Urine pH 6.0 Normal 5-9 Urine Urobilinogen Negative Negative Urine Ketones Negative Negative Urine Protein Negative Negative Urine Leukocytes Negative Negative Urine Blood Negative Negative Urine Nitrite Negative Negative Urine Bilirubin Negative Negative Urine Glucose Negative Negative 1 FLS Severe Sepsis and Septic Shock Management Bundle Measure requires all lactic acids initially measuring >2.0 mmol/L be repeated. 2 Troponin-I testing on Plasma Separator Tubes (PST) has a known false positive rate of 0.20-0.40%. All positive troponins reflex immediately to secondary confirmatory testing. Using the [employer] DxI 800 Access Immunoassay systems, the 99th percentile upper reference limit was demonstrated to be < 0.03 ng/mL. 3 Because ethnic data is not always readily available, this report includes an eGFR for both -Americans and non- Americans. The National Kidney Disease Education Program (NKDEP) does not endorse the use of the MDRD equation for patients that are not between the ages of 18 and 70, are , have extremes of body size, muscle mass, or nutritional status, or are non- or non-. According to the National Kidney Foundation, irrespective of diagnosis, the stage of the disease is based on the level of kidney function: Stage Description GFR(mL/min/1.73 m(2)) 1 Kidney damage with normal or decreased GFR 90 2 Kidney damage with mild decrease in GFR 60-89 3 Moderate decrease in GFR 30-59 4 Severe decrease in GFR 15-29 5 Kidney failure <15 (or dialysis) Procedures Date Code Description Status 01/15/2012 00732117 Colonoscopy Completed Medical Devices Description No Information Available Encounters Type Date Location Provider Dx Diagnosis Office Visit 01/17/2019 Main Office Ben Mayer1.21xD Laceration without 9:00a MD Rasta foreign body of nose, subs encntr Z48.02 Encounter for removal of sutures Office Visit 10/22/2018 1:00p Main Office Ben Singleton Essential ( primary) Karuna Christie hypertension Assessments Date Code Description Provider 03/24/2019 I95.9 Hypotension, unspecified LETY Miller 03/24/2019 A69.20 Lyme disease, unspecified Brianna Griffin, LETY 01/17/2019 S01.21xD Laceration without foreign body of nose, Ben Magdaleno MD subsequent encounte 01/17/2019 Z48.02 Encounter for removal of sutures Ben Magdaleno MD 10/22/2018 I10 Essential (primary) hypertension Ben Christie M.D. Plan of Treatment Future Appointment(s):06/03/2019 8:10 am - Ben Christie M.D. at Main [facility]/24/2019 - Brianna Griffin PAI95.9 Hypotension, unspecifiedComments: Stop Lisinopril completely. Monitor your blood pressure at home call with elevated readings >160/100 or low readings <90/60 Call with any concerns, dizziness, chest pain, headaches, trouble breathing.A69.20 Lyme disease, unspecifiedNew Labs:CBC Electronic (Fma New), Ordered: 03/24/19Comp Metabolic- ALL Lab Compani, Ordered: 03/24/19Tickborne Panel Fma, Ordered: 03/24/19CRP/Esr , Ordered: 03/24/19Comments:Recheck your lyme disease labs today.AllComments: PCMHMedication Management Patient Understands medications he's taking? Yes Are there Barriers to Adherence? No Has the patient been asked about herbal supplements and therapies, and OTC meds? Yes Care Plan1. Patient has been queried about patient's goals/preferences and functional/ lifestyle goals at relevant visits. Yes If relevant, describe: N/A2. Treatment goals as explained to the patient: above3. Are there barriers to meeting treatment goals? No If Yes, please describe:4. Self-Management goals as described to the patient: Yes As always, we strongly encourage a healthy diet and making physical activity a part of your every day life. If you have questions about how or where to start, please contact the office.Follow up:3-4 weeks for blood pressure check, as scheduled with Dr. Christie for physical exam Functional Status Description No Information Available Mental Status Description No Information Available Referrals Description No Information Available
--- NOTE | 2019-04-24 20:22 | ED ---
Adult Trauma - HPI Summary HPI Summary: 88-year-old male presents after fall today. He states he stumped his toe and fell down. He has abrasions across his face hands and knees. He denies any pain. No headache. No neck pain. denies any chest pain or shortness breath. Fall was a mechanical fall. Denies any dizziness. No nausea or vomiting. He is not on any blood thinners. No abdominal pain. No hip pain. Denies any upper or lower extremity pain. - History of Current Complaint Chief Complaint: EDFall Stated Complaint: FALL PER PT Time Seen by Provider: 04/24/19 19:55 Pain Intensity: 0 - Additional Pertinent History Primary Care Physician: FRANKLIN - Allergy/Home Medications Allergies/Adverse Reactions: Allergies Allergy/AdvReac Type Severity Reaction Status Date / Time No Known Allergies Allergy Verified 04/24/19 19:41 Home Medications: Home Medications Lisinopril TAB* [Prinivil TAB*] 10 mg PO DAILY 04/24/19 [History Confirmed 04/24] PMH/Surg Hx/FS Hx/Imm Hx Endocrine/Hematology History: Denies: Hx Anticoagulant Therapy, Hx Diabetes, Hx Thyroid Disease Cardiovascular History: Reports: Hx Hypertension, Other Cardiovascular Problems/ Disorders - HTN Denies: Hx Congestive Heart Failure, Hx Deep Vein Thrombosis, Hx Myocardial Infarction, Hx Pacemaker/ICD Respiratory History: Denies: Hx Asthma, Hx Chronic Obstructive Pulmonary Disease (COPD), Hx Lung Cancer, Hx Pneumonia, Hx Pulmonary Embolism GI History: Reports: Hx Diverticulosis, Hx Gastroesophageal Reflux Disease, Hx Obstructive Bowel Denies: Hx Gall Bladder Disease, Hx Gastrointestinal Bleed, Hx Ulcer, Hx Urosepsis Comment Only: Other GI Disorders - PAIN, History: Reports: Hx Benign Prostatic Hyperplasia, Other Problems/ Disorders - BPH Denies: Hx Kidney Stones, Hx Renal Disease Musculoskeletal History: Reports: Hx Arthritis - ALL OVER, Other Musculoskeletal History - bilateral knee replacements Sensory History: Reports: Hx Glaucoma, Hx Hearing Aid - not with pt Denies: Hx Contacts or Glasses, Hx Hearing Problem Opthamlomology History: Reports: Hx Glaucoma Denies: Hx Contacts or Glasses Neurological History: Denies: Hx Dementia, Hx Migraine, Hx Seizures, Hx Transient Ischemic Attacks (TIA) Psychiatric History: Denies: Hx Anxiety, Hx Depression, Hx Panic Disorder, Hx Schizophrenia, Hx Bipolar Disorder, Hx Substance Abuse - Surgical History Surgery Procedure, Year, and Place: CHOLECYSTECTOMY [facility]. REPAIR RUPTURED [facility] [employer] DIVERTICULUM. 2 LAPAROTOMIES FOR ABSCESSES. APPENDECTOMY. RIGHT SHOULDER [facility]. Bilateral Total Knee Replacement. L INGUINAL HERNIA [facility]. BILAT TKR 2000, 2001 [facility]. LEFT CATARACT EXTRACTION [facility] Hx Anesthesia Reactions: No - Immunization History Immunizations Up to Date: Yes Infectious Disease History: No Infectious Disease History: Denies: Hx Clostridium Difficile, Hx Hepatitis, Hx Human Immunodeficiency Virus (HIV), Hx of Known/Suspected MRSA, Hx Shingles, Hx Tuberculosis, Traveled Outside the [place] in Last 30 Days - Family History Known Family History: Negative: Cardiac Disease, Hypertension - Social History Alcohol Use: Daily Alcohol Amount: one cocktail or beer a day. Hx Substance Use: No Substance Use Type: Reports: None Hx Tobacco Use: No Smoking Status (MU): Former Smoker Have You Smoked in the Last Year: No Review of Systems Negative: Fever Negative: Chest Pain Positive: Other - abrasions Negative: Headache All Other Systems Reviewed And Are Negative: Yes Physical Exam Triage Information Reviewed: Yes Vital Signs On Initial Exam: Initial Vitals Temp Pulse Resp BP Pulse Ox 98.1 F 72 16 202/83 99 04/24/19 19:35 04/24/19 19:35 04/24/19 19:35 04/24/19 19:35 04/24/19 19:35 Vital Signs Reviewed: Yes Appearance: Positive: Well-Appearing Skin: Positive: Warm, Dry, Other - abrasion to right side of face and nose, skin tears to knees and bilateral hands Eyes: Positive: Normal, EOMI, DIPIKA, Conjunctiva Clear ENT: Positive: Pharynx normal, TMs normal Neck: Positive: Other: - nontender neck, full ROM neck Respiratory/Lung Sounds: Positive: Clear to Auscultation, Breath Sounds Present Cardiovascular: Positive: Normal, RRR Musculoskeletal: Positive: Strength/ROM Intact - upper and lower extremities, Other - good pulses Neurological: Positive: Sensory/Motor Intact, CN Intact II-III. Negative: Alert , Oriented to Person Place, Time Psychiatric: Positive: Normal Procedures - Laceration/Wound Repair 1 Location: Other - facial Description: Linear Length, Depth and Shape: 1cm superficial Irrigated w/ Saline (ccs): 200 Closure: Skin Adhesive Diagnostics - Vital Signs Vital Signs Temp Pulse Resp BP Pulse Ox 04/24/19 20:04 71 238/131 96 04/24/19 19:35 98.1 F 72 16 202/83 99 - Laboratory Lab Statement: Any lab studies that have been ordered have been reviewed, and results considered in the medical decision making process. - CT brain CT Interpretation Completed By: Radiologist Summary of CT Findings: IMPRESSION: 1. No acute intracranial findings. Age- related atrophy and chronic white matter ischemic change. 2. Subcutaneous edema/ hematoma of right forehead. Correlate with clinical exam. neck CT Interpretation Completed By: Radiologist Summary of CT Findings: IMPRESSION: No cervical spine fracture identified. Multilevel degenerative change as seen previously. maxillaryfacial CT Interpretation Completed By: Radiologist Summary of CT Findings: IMPRESSION: 1. Left nasal bone fracture, likely acute. Correlate with clinical exam 2. Subcutaneous edema/hematoma of right cheek, anne -orbital region, and forehead. Re-Evaluation - Re-Evaluation First Eval Change: Improved Comment: bp 169/76 Adult Trauma Course/Dx - Course Course Of Treatment: 88-year-old male presents after fall today. He states he stumped his toe and fell down. He has abrasions across his face hands and knees. He denies any pain. No headache. No neck pain. denies any chest pain or shortness breath. Fall was a mechanical fall. Denies any dizziness. No nausea or vomiting. He is not on any blood thinners. No abdominal pain. No hip pain. Denies any upper or lower extremity pain. On exam full range motion of all extremities. Cranial nerves intact. Has multiple skin tears across body. CT brain shows no intercranial bleeding. patient's blood pressure was elevated upon arrival. after clonidine bp is 167/76. told to keep abrasions clean. glue applied to 1cm superficial eyebrow laceration. told follow up with primary about blood pressure. patient understand and agrees with plan. - Diagnoses Differential Diagnosis/HQI/PQRI: Positive: Abrasion(s), Contusion(s), Fracture Provider Diagnoses: Abrasions of multiple sites, Fall, Head injury, Hypertension Discharge ED - Sign-Out/Discharge Documenting (check all that apply): Patient Departure Patient Received Moderate/Deep Sedation with Procedure: No - Discharge Plan Condition: Good Disposition: HOME Patient Education Materials: Abrasion (ED) Referrals: Ben Christie MD [Primary Care Provider] - Additional Instructions: wash areas with soap and water daily keep area covered and apply neosporin apply ice follow up with primary Return to ED if develop any new or worsening symptoms - Billing Disposition and Condition Condition: GOOD Disposition: Home
[2019-04-24] MEDS ORDERED: cloNIDine TAB* 0.1 MG PO ONE (20:29)
[2019-04-24 21:53] VITALS: BP 159/80
== END 2019-04-24 21:52 | disposition home or self-care (01) ==
LOC: ED 19:34
DX: S02.2XXA Fracture of nasal bones, initial encounter for closed fracture (principal); S00.81XA Abrasion of other part of head, initial encounter; S80.212A Abrasion, left knee, initial encounter; S80.211A Abrasion, right knee, initial encounter; S60.512A Abrasion of left hand, initial encounter; S60.511A Abrasion of right hand, initial encounter; I10 Essential (primary) hypertension; W18.00XA Striking against unspecified object with subsequent fall, initial encounter; Y92.9 Unspecified place or not applicable; M50.30 Other cervical disc degeneration, unspecified cervical region; K21.9 Gastro-esophageal reflux disease without esophagitis; N40.0 Benign prostatic hyperplasia without lower urinary tract symptoms; Z90.49 Acquired absence of other specified parts of digestive tract; Z96.653 Presence of artificial knee joint, bilateral; Z87.891 Personal history of nicotine dependence; Z79.899 Other long term (current) drug therapy
CPT/HCPCS: 70450; 70486; 72125; 99283; A9270-GY